=== PATIENT | male | born 1975 ===

== ENCOUNTER 2017-02-24 20:51 | Emergency (ER) | payer MEDICAID ==
[~2017-02-24] VITALS: Ht 170.2 cm; Wt 86.4 kg
[2017-02-24 21:14] VITALS: BP 145/80; PULSE 88; RESP 16; O2SAT 97
--- NOTE | 2017-02-24 21:43 | DRSVH ---
PROCEDURE: X-RAY PELVIS W/LAT HIP (RT) ([id number]) INDICATIONS: worsening pain TECHNIQUE: AP pelvis with lateral view(s) of the right hip(s). COMPARISON: None. FINDINGS: Bones: No fractures or dislocations. Pelvic ring appears intact. No suspicious bony lesions. [place] us hypertrophy noted at the right femoral neck head junction. Soft tissues: The visualized bowel gas pattern is normal. No suspicious soft tissue calcifications. IMPRESSION: 1. No fracture. No acute osseous lesion. If there are persistent symptoms or clinical suspicion for pathology, then repeat radiographs or advanced imaging (CT, MRI or bone scan) should be considered fo r further evaluation. 2. Mild osseous hypertrophy at the superior margin of the right femoral head neck junction which can be associated with femoral-acetabular impingement syndrome. Please correlate with clinical data. Dictated by: Hazel Lopez MD, PhD on 02/24/2017 at 21:40 Approved by: Hazel Lopez MD, PhD on 02/24/2017 at 21:42
--- NOTE | 2017-02-24 23:15 | ED.REPORT ---
HPI-Extremity Problem Lower Date of Service Feb 24, 2017 ED Provider: Ping Hayes MD Pt is a 41 year old male with a hx of chronic hip and back pain presenting to the ED complaining of right hip pain onset in the last few days. He states that he has had pain since October, worsened in the last 2 days after walking around [place]. Pt also complains of numbness in the toes. Denies fever, chills, nausea , vomiting, SOB or wheezing. Pt reports that he has not seen a PCP for his symptoms because his PCP moved to [place] a while ago. Nursing Notes Stated Complaint: HIP PAIN Chief Complaint: Extremity Trauma Nursing Notes Reviewed: Yes Allergies: Coded Allergies: No Known Allergies (Unverified , 02/24/17) Scheduled Naproxen Sodium (Aleve) 220 Mg Capsule 220 MG PO BID General Time Seen by MD: 23:12 Chief Complaint Hip injury right Hx Obtained From: Patient Arrived By: Walk-in Onset Occurred: 2 days ago Symptom Duration: Since onset Location: : Hip right Quality: Painful Severity: Current: Moderate Severity: Maximum: Moderate Recent Healthcare: No recent doctor visit, No recent hospitalization Similar Sx Previous: Yes Past Medical History Past Medical History Chronic back and hip pain Past Surgical History denies Smoking History Unknown if Ever Smoker Social History Alcohol Use: "Social" Other Social History: Ambulatory Status Independent Review of Systems Constitutional: Denies: Chills, Fever Musculoskeletal: Reports: Back pain, Extremity pain, Joint pain Neurologic: Reports: Numbness Complete sys rev & neg: except as marked. Respiratory: Denies: Shortness of breath, Wheezing GI: Denies: Nausea, Vomiting Physical Exam Initial Vital Signs Vital Signs (First) Date Time Temp Pulse Resp B/P Pulse Ox O2 Delivery O2 Flow Rate FiO2 02/24/17 21:14 37.1 88 16 145/80 97 Room Air Initial VS: Reviewed General/Constitutional: Well-developed, Well-nourished Head / Eyes: Atraumatic, Normocephalic ENT: Mucous membranes moist, Conjunctiva normal, No scleral icterus Respiratory: Breath sounds normal, Clear to auscultation, No respiratory distress Cardiovascular: Regular rate & rhythm, Heart sounds normal, Intact distal pulses Abdomen / GI: Soft, Non-tender, No guarding, No rebound, No distention Upper Extremities: Vascular intact, Neuro intact, No swelling, No tenderness Skin: Warm, Dry, No cyanosis Neurologic: Alert, Oriented, Nonfocal Psychiatric: Mood/affect normal, Behavior normal, Normal thought content Lower Extremity / Pelvis / MS: No deformity, Neurologic intact, Vascular intact Full range of motion of his hips able to weight bear normally. Tingling/paresthesias of bilateral distal extremities but no numbness, no weakness, normal perfusion of bilateral feet Interpretation & Diagnostics X-Ray Interpretation Xray Interpretation: IMPRESSION: 1. No fracture. No acute osseous lesion. If there are persistent symptoms or clinical suspicion for pathology, then repeat radiographs or advanced imaging (CT, MRI or bone scan) should be considered for further evaluation. 2. Mild osseous hypertrophy at the superior margin of the right femoral head neck junction which can be associated with femoral-acetabular impingement syndrome. Please correlate with clinical data. Dictated by: Hazel Lopez MD, PhD on 02/24/2017 at 21:40 X-Ray Ordered: Pelvis, Hip right Interpretation / Wet Read by: Interpret - Radiologist Re-Eval/Medical Decision Med Decision/Clinical Course This 41-year-old male with acute exacerbation of chronic hip pain after extensive walking today. Patient has a demanding job as a fisherman, his x-ray showed possible acetabular femoral impingement. I discussed this patient and following up with an orthopedist for this. I do not have a suspicion for fracture or infection. Patient was given an IM Toradol injection, and instructed to continue taking Aleve. Re-Evaluation/Progress : Time of Eval: 23:26 Patient Status: Condition improved Re-Evaluation/Progress Note: Discussed plan for discharge. Pt understands and agrees with plan for discharge. Counseled Regarding: Diagnosis, Lab results, Need for follow-up, When/why to return to ED Discharge & Departure Impression: Primary Impression: Hip pain Laterality: right Qualified Code: M25.551 - Pain in right hip Additional Impressions: Back pain Back pain location: back pain in unspecified location Chronicity: chronic Back pain laterality: unspecified Qualified Code: M54.9 - Dorsalgia, unspecified Femoral acetabular impingement Disposition: Home Discharge Condition All VS Reviewed: Yes Condition: Improved Patient Instructions: Arthritis (ED) Additional Instructions: Your x ray did not show any sign of fracture. It did show that you may have something called femoral acetabular impingement. Follow up with an orthopedist or sports medicine doctor about this. Your pain is likely worse to so much walking recently. You should rest over the next couple of days. Follow up with the primary care doctor referred to you in the next few days to see about physical therapy or orthopedic consultations. Return to the ER if you develop any new or worsening symptoms such as weakness, numbness, headache, fever, chills, nausea, vomiting, shortness of breath or wheezing. Referrals: Maribel Hernández MD, Jean Marie MD Scribe Attestation Portions of this note were transcribed by Araceli Montiel. I, Dr. Hayes personally performed the history, physical exam and medical decision-making; I reviewed and confirmed the accuracy of the information in the transcribed note. Signed by: Jackelyn Humphreys, 02/24/2017. copies to: Maribel Hernández MD; Mendez Armendariz MD, Sarah C MD Feb 24, 2017 23:15 ARACELI MONTIEL Feb 24, 2017 23:26
[2017-02-24] MEDS ORDERED: NAPR220C11 PO (23:43)
[2017-02-25 00:05] VITALS: BP 145/80; PULSE 88; RESP 16; O2SAT 97
== END 2017-02-25 00:08 | disposition home or self-care (01) ==
LOC: SED 20:51
DX: M25.551 Pain in right hip (principal); M54.9 Dorsalgia, unspecified; M25.851 Other specified joint disorders, right hip; F17.210 Nicotine dependence, cigarettes, uncomplicated; X50.9XXA Other and unspecified overexertion or strenuous movements or postures, initial encounter; Y93.01 Activity, walking, marching and hiking; Y99.8 Other external cause status; Y92.89 Other specified places as the place of occurrence of the external cause
CPT/HCPCS: 73501; 96372; 99284; J1885